=== PATIENT | male | born 1980 | race Caucasian/White ===

== ENCOUNTER 2016-10-16 12:03 | Day surgery (SDC) | payer OTHER ==
[2016-10-11 09:27] VITALS: BMI 34.4
[~2016-10-16 12:03] MED LIST: LACTATED RINGERS 1,000 ML IV SCH; LIDOCAINE 1% 20 ML VIAL (10MG/ML) FOR IV START INTRADERMA PRN
[2016-10-16 12:37] VITALS: RESP 16; TEMP 97.2
[2016-10-16] MEDS ORDERED: PROPOFOL 10 MG/ML 20 ML VIAL IV ONE (14:38)
--- NOTE | 2016-10-16 15:06 | P.PCN ---
Date of Procedure: 10/16/16 Procedure(s) Performed: Procedure: Total colonoscopy. Preoperative diagnosis: Intermittent rectal bleeding. Postoperative diagnosis: Low-grade internal hemorrhoids not bleeding at the time of the exam, otherwise, exam to the cecum within normal limits. Preparation: HalfLytely prep. Sedation: Was provided by anesthesia. Brief clinical history: The patient is a 36-year-old male who is referred for this evaluation because of intermittent fevers bleeding per rectum for some time. There is no change in bowel habits, abdominal pains or other symptoms. No family history of colon cancer. This would be his first colonoscopy. Procedure: With the patient on his left lateral decubitus position and after informed consent and adequate sedation, the perianal area was inspected and it did not show any fissures or fistulas. There were no masses felt on digital rectal examination. The Olympus CFQ 160L video colonoscope was then inserted in the rectum in the usual fashion and advanced to the cecum. The mucosa appeared healthy. No polyps or tumors were seen or any obvious diverticular disease or other pathology. I retroflexed endoscope in the rectum before the endoscope was withdrawn. Low-grade internal hemorrhoids were noted with no evidence of bleeding. The patient tolerated the procedure well. Plan: The patient was reassured. Discussed dietary measures and local care for hemorrhoids. In the absence of family history of colon cancer or finding of polyps today, I recommended repeat exam at age 50.
[2016-10-16 15:14] VITALS: BP 133/79; PULSE 73
== END 2016-10-16 15:45 | disposition home or self-care (01) ==
LOC: ORWHC2ENDO 12:03
DX: K64.8 Other hemorrhoids (principal); F17.200 Nicotine dependence, unspecified, uncomplicated; Z79.1 Long term (current) use of non-steroidal anti-inflammatories (NSAID); Z79.891 Long term (current) use of opiate analgesic; Z88.0 Allergy status to penicillin
CPT/HCPCS: 45378; J2704

== ENCOUNTER → 2020-12-22 | Outpatient (CLI) | payer OTHER ==
--- NOTE | 2020-12-22 15:12 | US ---
EXAMINATION TYPE: US liver DATE OF EXAM: 12/22/2020 COMPARISON: NONE CLINICAL HISTORY: R94.5 Abn results of liver function studies. elevated lft's, no symptoms EXAM MEASUREMENTS: Liver Length: 17.7 cm, Jeff under representing measurement Gallbladder Wall: 0.2 cm CBD: 0.4 cm Right Kidney: 10.4 x 5.2 x 5.0 cm Pancreas: very limited imaging Liver: difficult to penetrate Gallbladder: wnl Evidence for sonographic Sena's sign: no CBD: wnl Right Kidney: wnl Is no ascites. IMPRESSION: Exam is limited. Findings suggest hepatic steatosis, hepatocellular disease.
== END | disposition home or self-care (01) ==
LOC: RADUSWWP 10:18
DX: R94.5 Abnormal results of liver function studies (principal)
CPT/HCPCS: 76705

== ENCOUNTER → 2023-05-22 | Outpatient (CLI) | payer OTHER | END | disposition home or self-care (01) | LOC: LABWHC1 15:56 | PROVIDERS: ATTEND Internal Medicine Gastroenterology | DX: K59.09 Other constipation (principal) | CPT/HCPCS: 36415; 83516; 85652; 86140 ==

== ENCOUNTER 2025-02-05 19:21 | Emergency (ER) | payer OTHER ==
[2025-02-05 19:26] VITALS: TEMP 99.5
[2025-02-05 20:09] LABS: Basophils # (A) 0.05 10*3/uL (0.00-0.10); Basophils % (A) 0.5 %; Eosinophils # (A) 0.25 10*3/uL (0.04-0.35); Eosinophils % (A) 2.6 %; HCT 43.3 % (39.6-50.0); HGB 15.1 g/dL (13.0-17.0); Lymphocytes # (A) 3.87 10*3/uL (0.90-5.00); Lymphocytes % (A) 39.8 %; MCH 30.8 pg (27.0-32.0); MCHC 34.9 g/dL (32.0-37.0); MCV 88.2 fL (80.0-97.0); Monocytes # (A) 0.67 10*3/uL (0.20-1.00); Monocytes % (A) 6.9 %; Neutrophils # (A) 4.86 10*3/uL (1.80-7.70); Neutrophils % (A) 49.9 %; Platelet Count 257 10*3/uL (140-440); RBC 4.91 10*6/uL (4.40-5.60); RDW 12.1 % (11.5-14.5); WBC 9.73 10*3/uL (4.50-10.00)
[2025-02-05 20:17] LABS: ALT 77 U/L (4-49); AST 43 U/L (17-59); African American GFR (CKD) >90 (>60 ml/min/1.73 sqM); Albumin 4.8 g/dL (3.5-5.0); Alkaline Phosphatase 62 U/L (38-126); Anion Gap 14 mmol/L; Blood Urea Nitrogen 13 mg/dL (9-20); Calcium 9.8 mg/dL (8.4-10.2); Carbon Dioxide 23 mmol/L (22-30); Chloride 101 mmol/L (98-107); Glucose 140 mg/dL (74-99); Lipase 124 U/L (23-300); Magnesium 2.0 mg/dL (1.6-2.3); Non-African American GFR(CKD) >90 (>60 ml/min/1.73 sqM); Potassium 4.0 mmol/L (3.5-5.1); Sodium 138 mmol/L (137-145); Total Protein 7.4 g/dL (6.3-8.2)
[2025-02-05 20:24] LABS: INR 1.0 (<1.2); Partial Thromboplastin Time 23.6 sec (22.0-30.0); Prothrombin Time 10.9 sec (10.0-12.5)
[2025-02-05 20:58] VITALS: RESP 18
--- NOTE | 2025-02-05 21:18 | ED ---
Chest Pain [facility] - General Chief Complaint: Chest Pain Stated Complaint: Chest pain, dizziness, SOB Time Seen by Provider: 02/05/25 19:25 Source: patient Mode of arrival: ambulatory Limitations: no limitations - History of Present Illness Initial Comments: 44-year-old male who presents emergency department after he had an episode of chest pain. Patient reports to multiple episodes of chest pain over the past couple of years. Denies any provocative factors. States that his symptoms will typically resolve after 15 minutes. He describes it as a pressure sensation which is associated with shortness of breath and the sensation that he is going to pass out. He has talked to his doctor about this but denies having any formal testing. Today the patient had an episode when he was driving home. States that he had smoked a cigarette. He smokes approximately 6 cigarettes a day. The chest pain began but this time lasted 2 hours. He denies previous history of cardiac disease. Admits to history of high blood pressure however does not need any medications as it has improved over the years. He also admits to high cholesterol and borderline diabetes. Grandparents have a strong family history of cardiac disease. He denies any chest pain now. No nausea or vomiting. No abdominal pain. No headaches or visual changes. No other alleviating, precipitating or modifying factors - Related Data Home Medications Medication Instructions Recorded Confirmed Multivitamins, Thera [Multivitamin 1 tab PO DAILY 02/05/25 02/05/25 (formulary)] Allergies Allergy/AdvReac Type Severity Reaction Status Date / Time Penicillins Allergy Unknown Unknown Verified 02/05/25 20:25 Childhood Review of Systems ROS Statement: Those systems with pertinent positive or pertinent negative responses have been documented in the HPI. ROS Other: All systems not noted in ROS Statement are negative. Past Medical History Past Medical History: GERD/Reflux, Hyperlipidemia, Hypertension Additional Past Medical History / Comment(s): RIGHT KNEE , BACK AND NECK PAIN. Prediabetes, vitamin d deficiency. History of Any Multi-Drug Resistant Organisms: None Reported Past Surgical History: Orthopedic Surgery Additional Past Surgical History / Comment(s): RIGHT KNEE SURGERY FOR RUPTURED T ENDON AND SKIN GRAFT TAKEN FROM RIGHT THIGH (TOTAL OF 6 SURGERIES) Past Anesthesia/Blood Transfusion Reactions: Motion Sickness, Postoperative Nausea & Vomiting (PONV) Additional Past Anesthesia/Blood Transfusion Reaction / Comment(s): PROBLEMS WITH NERVE BLOCKS. Past Psychological History: No Psychological Hx Reported Smoking Status: Current every day smoker Past Alcohol Use History: Rare Past Drug Use History: None Reported - Past Family History Mother Family Medical History: No Reported History General Exam Limitations: no limitations General appearance: alert, in no apparent distress Head exam: Present: atraumatic, normocephalic, normal inspection Eye exam: Present: normal appearance, PERRL, EOMI. Absent: scleral icterus, conjunctival injection, periorbital swelling ENT exam: Present: normal exam, mucous membranes moist Neck exam: Present: normal inspection. Absent: tenderness, meningismus, lymphadenopathy Respiratory exam: Present: normal lung sounds bilaterally. Absent: respiratory distress, wheezes, rales, rhonchi, stridor Cardiovascular Exam: Present: regular rate, normal rhythm, normal heart sounds. Absent: systolic murmur, diastolic murmur, rubs, gallop, clicks GI/Abdominal exam: Present: soft, normal bowel sounds. Absent: distended, tenderness, guarding, rebound, rigid Extremities exam: Present: normal inspection, full ROM, normal capillary refill. Absent: tenderness, pedal edema, joint swelling, calf tenderness Back exam: Present: normal inspection Neurological exam: Present: alert, oriented X3, CN II-XII intact Psychiatric exam: Present: normal affect, normal mood Skin exam: Present: warm, dry, intact, normal color. Absent: rash Course Vital Signs 02/05/25 02/05/25 02/05/25 19:23 20:53 21:47 Temperature 99.5 F Pulse Rate 98 89 81 Respiratory 20 18 18 Rate Blood Pressure 163/111 140/103 150/103 O2 Sat by Pulse 99 96 96 Oximetry Chest Pain MDM - MDM Was pt. sent in by a medical professional or institution (, PA, MILITARY SOURCE OPERATIONS OFFICER, urgent care, hospital, or senior living...) When possible be specific @ -No Did you speak to anyone other than the patient for history (EMS, parent, family, police, friend...)? What history was obtained from this source @ -No Did you review nursing and triage notes (agree or disagree)? Why? @ -I reviewed and agree with nursing and triage notes Were old charts reviewed (outside hosp., previous admission, EMS record, old EKG, old radiological studies, urgent care reports/EKG's, senior living records)? Report findings @ -No old charts were reviewed Differential Diagnosis (chest pain, altered mental status, abdominal pain women, abdominal pain men, vaginal bleeding, weakness, fever, dyspnea, syncope, headache, dizziness, GI bleed, back pain, seizure, CVA, palpatations, mental health, musculoskeletal)? @ -Differential Chest Pain: Stable Angina, Unstable Angina, STEMI, NSTEMI Aortic Dissection, Pneumothorax, Musculoskeletal, Esophageal Spasm GERD, Cholecystitis, Pancreatitis, Zoster, this is not meant to be an all-inclusive list. EKG interpreted by me (3pts min.). @ -Yes which demonstrates sinus rhythm with rate of 81. AL interval 154. QRS 87. QTc of 419. No acute ST segment elevations or depressions. Some PVCs present X-rays interpreted by me (1pt min.). @ -Yes with no acute process CT interpreted by me (1pt min.). @ -None done U/S interpreted by me (1pt. min.). @ -None done What testing was considered but not performed or refused? (CT, X-rays, U/S, labs)? Why? @ -Echo however patient does not want to be admitted be admitted What meds were considered but not given or refused? Why? @ -None Did you discuss the management of the patient with other professionals (professionals i.e. , PA, MILITARY SOURCE OPERATIONS OFFICER, lab, RT, psych nurse, hospice social worker, green marketing analyst, teacher, emergency response officer, pillowcase cleaner)? Give summary @ -No Was smoking cessation discussed for >3mins.? @ -No Was critical care preformed (if so, how long)? @ -No Were there social determinants of health that impacted care today? How? (Homelessness, low income, unemployed, alcoholism, drug addiction, transportation, low edu. Level, literacy, decrease access to med. care, intermediate, rehab)? @ -No Was there de-escalation of care discussed even if they declined (Discuss DNR or withdrawal of care, Hospice)? DNR status @ -No What co-morbidities impacted this encounter? (DM, HTN, Smoking, COPD, CAD, Cancer, CVA, ARF, Chemo, Hep., AIDS, mental health diagnosis, sleep apnea, morbid obesity)? @ -Hypertension, high cholesterol, borderline diabetic Was patient admitted / discharged? Hospital course, mention meds given and route, prescriptions, significant lab abnormalities, going to OR and other pertinent info. @ -Upon arrival patient seen and evaluated in room 7. Thorough history and physical exam was performed. Patient is pain-free at this time. Laboratory studies are conducted. Chest x-ray was performed. I did discuss results with the patient. He has several risk factors including high blood pressure, high cholesterol, borderline diabetic with family history. I recommended admission with echo and possible stress test. Patient states he is pain-free and would prefer to do this on an outpatient basis. He does call his who recommended that the patient have a done outpatient. Informed the patient that he does have significant risk factors and that I do think he needs a cardiac evaluation as soon as possible. I do draw second troponin which was also negative. Patient will be discharged. Instructed to follow-up with primary care soon as possible. Return for any new or worsening symptoms Undiagnosed new problem with uncertain prognosis? @ -No Drug Therapy requiring intensive monitoring for toxicity (Heparin, Nitro, Insulin, Cardizem)? @ -No Were any procedures done? @ -No Diagnosis/symptom? @ -Acute chest pain Acute, or Chronic, or Acute on Chronic? @ -Acute Uncomplicated (without systemic symptoms) or Complicated (systemic symptoms)? @ -Complicated Side effects of treatment? @ -No Exacerbation, Progression, or Severe Exacerbation? @ -No Poses a threat to life or bodily function? How? (Chest pain, [place], [place], pneumonia, PE, COPD, DKA, ARF, appy, cholecystitis, CVA, Diverticulitis, Homicidal, Suicidal, threat to staff... and all critical care pts) @ -No Disposition Clinical Impression: Chest pain Disposition: HOME SELF-CARE Condition: Stable Instructions (If sedation given, give patient instructions): Chest Pain (ED) Additional Instructions: I recommend that you have an echo and stress test performed. Please follow-up with your doctor to obtain this. If you have any return of your symptoms, please return to the emergency department Is patient prescribed a controlled substance at d/c from ED?: No Referrals: Chai Oscar DO [Primary Care Provider] - 1-2 days Time of Disposition: 21:35
[2025-02-05 21:48] VITALS: BP 150/103; PULSE 81
--- NOTE | 2025-02-05 21:49 | XR ---
EXAMINATION TYPE: XR chest 2V DATE OF EXAM: 02/05/2025 8:50 PM CLINICAL INDICATION:Male, 44 years old with history of Chest Pain; [facility] COMPARISON: None TECHNIQUE: XR chest 2V Frontal view of the chest. FINDINGS: Lungs/Pleura: There is no evidence of pleural effusion, focal consolidation, or pneumothorax. Pulmonary vascularity: Unremarkable. Heart/mediastinum: Cardiomediastinal silhouette is unremarkable. Musculoskeletal: Cortical irregularity of the posterior left third rib suggested. IMPRESSION: No acute cardiopulmonary disease/process. Age indeterminate posterior left third rib fracture is suggested. Correlate with any history of traum a and point tenderness. [facility], , 02/05/2025 9:47 PM
== END 2025-02-05 21:47 | disposition home or self-care (01) ==
LOC: EC 19:21
DX: R07.89 Other chest pain (principal); F17.210 Nicotine dependence, cigarettes, uncomplicated; Z88.0 Allergy status to penicillin
CPT/HCPCS: 36415; 71046; 80053; 83690; 83735; 84484; 85025; 85610; 85730; 93005; 99285